=== PATIENT | male | born 1950 | race Caucasian/White ===

== ENCOUNTER 2017-03-13 07:39 | Day surgery (SDC) | payer BC, MEDICARE ==
--- NOTE | 2017-03-12 11:17 | HISTORY AND PHYSICAL E ---
History and Physical NAME: EMI ARCHULETA : 1950 AGE: 66Y ADMITTED: 03/13/2017 ROOM: REASON FOR VISIT: Planned colon screening. History of polyps. HISTORY: Patient did have colonoscopy shows polyps in sigmoid, hyperplastic polyps, rectum, hyperplastic. Patient did have other scope as well. PRIMARY PHYSICIAN: Chivo Saxena MD SOCIAL HISTORY: Drinks alcohol sometimes in the evening. SURGICAL HISTORY: Appendectomy. REVIEWING OF SYSTEMS: CARDIAC: Hypertension. RESPIRATORY: Bronchitis. GASTROINTESTINAL: Reflux, bloating. FAMILY HISTORY: Father had Parkinson disease, heart disease. Mom had COPD. PHYSICAL EXAMINATION: VITAL SIGNS: Blood pressure 150/80. Pulse 80. Respirations 20. Temperature is 98. HEAD, EYES, EARS, NOSE, THROAT: Normal. ABDOMEN: Soft. NEUROLOGIC: Examination negative. LABORATORY: Patient did have high CEA. Patient did have chest x-ray. Showed COPD. White count 7, hemoglobin 16. CA 4.6. CA 19-9 normal. H. pylori negative. CONCLUSION: 1. COLON SCREENING 2. HISTORY OF POLYPS. PLAN: A planned colonoscopy to be done 03/13/2017. Today's date is 03/11/2017. DICTATING PHYSICIAN: GENO MCBRIDE M.D. [id number] PHY#: [id number] ID: [id number] JOB#: [id number] ACCT: [id number] cc:GENO MCBRIDE M.D. >
[~2017-03-13 07:39] MED LIST: EPINEPHRINE INJ 1 MG/10 ML DISP.SYRIN ONE; FLUMAZENIL INJ 0.5 MG/5 ML VIAL ONE; GLUCAGON,HUMAN RECOMB 1 MG INJ ONE; GLYCOPYRROLATE INJ 0.4 MG/2 ML VIAL ONE; NALOXONE HCL INJ/PF 0.4 MG/1 ML SDV ONE; ONDANSETRON HCL INJ/PF 4 MG/2 ML SDV ONE
[2017-03-13] MEDS: MIDAZOLAM 2 MG/2 ML INJ ONE ×3 (08:15→08:35)
[2017-03-13] MEDS: FENTANYL CITRATE INJ/PF 100 MCG/2 ML AMPUL ONE ×3 (08:17→08:32)
[2017-03-13 10:08] VITALS: BP 133/76
[2017-03-13 10:11] LABS: ABSOLUTE EOSINOPHILS # (AUTO) 0.1 10^3/uL (0.0-0.6); ABSOLUTE LYMPHOCYTES (AUTO) 1.2 10^3/uL (0.5-4.7); ABSOLUTE MONOCYTES (AUTO) 0.7 10^3/uL (0.1-1.4); ABSOLUTE NEUT (AUTO) 9.4 10^3/uL (1.7-8.2); BASOPHILS % (AUTO) 0.3 % (0-2); EOSINOPHILS % (AUTO) 1.1 % (0-6); HEMATOCRIT 51.9 % (37.9-51.0); HEMOGLOBIN 17.8 g/dL (13.5-17.0); HGB HCT DIFFERENCE 1.5; LYMPHOCYTES % (AUTO) 10.8 % (13-45); MEAN CORPUSCULAR HGB CONC 34.4 g/dL (32.0-36.0); MEAN CORPUSCULAR VOLUME 102 fl (80-97); MONOCYTES % (AUTO) 5.8 % (3-13); RED CELL DISTRIBUTION WIDTH 13.1 % (11.5-14.0); WHITE BLOOD COUNT 11.5 10^3/uL (4.0-10.5)
--- NOTE | 2017-03-13 14:12 | DISCHARGE SUMMARY E ---
Discharge Summary NAME: EMI ARCHULETA : 1950 AGE: 66Y ADMITTED: 03/13/2017 DISCHARGED: 03/13/2017 HOSPITAL COURSE: The patient is a 66-year-old male who underwent colon screening today that shows sessile polyp mid transverse colon, partially resected severe diverticulosis. DISCHARGE PLAN: Clear liquid. Advance to soft, low-residue diet. Awaiting lab. Surgical consult regarding sessile polyp. DICTATING PHYSICIAN: GENO MCBRIDE M.D. [id number] PHY#: [id number] ID: [id number] JOB#: [id number] ACCT: [id number] cc:ALEXI CELIS M.D., MAHMOUD M.D. >
--- NOTE | 2017-03-13 14:27 | OPERATIVE REPORT E ---
Operative Report NAME: EMI ARCHULETA : 1950 AGE: 66Y DATE OF SURGERY: 03/13/2017 ROOM: PREOPERATIVE DIAGNOSIS: Colon screening. POSTOPERATIVE DIAGNOSES: 1. Sigmoid and descending colon diverticulosis, severe. 2. Sessile 1.5 cm polyp in the mid transverse colon. PROCEDURE: 1. Colonoscopy. 2. Polypectomy. SURGEON: GENO MCBRIDE M.D. ANESTHESIA: Versed 4 mg and Fentanyl 100 mcg. DESCRIPTION OF PROCEDURE: Rectal exam shows enlarged prostate, otherwise negative. Sigmoid diverticulosis. Descending colon diverticulosis. Transverse colon sessile polyp. The ascending colon shows diverticulosis. Cecum normal. Scope withdrawn cecum, ascending, transverse colon. A polyp was visualized. Polypectomy: The polyp was sessile in the mid transverse colon. We injected saline and did a snare polypectomy but the polyp was so sessile it did not lift completely so after resection there was a piece of the polyp in the wall of the colon and I felt any further resection is very risky for perforation so we elected to watch and see and consider follow-up colonoscopy after 3 months pending biopsy results. Scope withdrawn again, sigmoid, descending all the way to the rectum. CONCLUSIONS: Sessile polyp, partially resected, mid transverse colon, most likely adenoma. No tissue available. Consideration for follow-up colonoscopy after 3 months regarding partial polyp resection, mid transverse colon, most likely adenoma. Meanwhile, discharge the patient on clear liquids today, awaiting labs and CBC. Advance to full liquid and soft, low residue gradually. Patient was advised to come to the emergency room if he has any pain or severe discomfort or any sign of bleeding. The site of the polyp was Bridget inked for future exams. DICTATING PHYSICIAN: GENO MCBRIDE M.D. [id number] PHY#: [id number] ID: [id number] JOB#: [id number] ACCT: [id number] cc:ALEXI CELIS M.D., MAHMOUD M.D. >
== END 2017-03-13 10:05 | disposition home or self-care (01) ==
LOC: END 07:39
PROVIDERS: ATTEND Specialist
PROC: 0DBL8ZX Excision of Transverse Colon, Via Natural or Artificial Opening Endoscopic, Diagnostic (ICD-10-PCS; principal; 2017-03-13 08:00)
PROC: 3E0H8GC Introduction of Other Therapeutic Substance into Lower GI, Via Natural or Artificial Opening Endoscopic (ICD-10-PCS; 2017-03-13 08:00)
DX: Z12.11 Encounter for screening for malignant neoplasm of colon (principal); D12.3 Benign neoplasm of transverse colon; Z86.010 Personal history of colon polyps; K57.30 Diverticulosis of large intestine without perforation or abscess without bleeding; I10 Essential (primary) hypertension; Z79.899 Other long term (current) drug therapy
CPT/HCPCS: 45385; 45381; 36415; 82378; 85025; J2250; J3010; J1610; J2405; J0171; J2310; J3490